=== PATIENT | female | born 1995 ===

== ENCOUNTER 2017-09-12 17:38 | Emergency (ER) | payer OTHER ==
[2017-09-12] MEDS ORDERED: NS(*) 0.9% 1000 ML BAG 1,000 ML IV ONE (18:19)
--- NOTE | 2017-09-12 18:19 | ER Report ---
History and Physical Time Seen By MD: 18:13 Hx. of Stated Complaint: ABD PAIN A FEW DAYS AGO, YESTERDAY WORSE AFTER DRINKING COFFEE. BETTER TODAY UNTIL SHE ATE. NAUSEA NO VOMITING. SAW [facility] AND SENT HERE, AFTER EXAM THINKS IT IS OVARIAN CYST HPI/ROS CHIEF COMPLAINT: Right lower quadrant abdominal pain HISTORY OF PRESENT ILLNESS: 22-year-old female sent over from [place] for evaluation of right lower quadrant pain. Said pain for 3 days. The pain seems to wax and wane. It's worse with eating. Patient denies fever or chills. She's had nausea but no vomiting. She denies diarrhea or constipation. She denies dysuria. She states she had a pelvic exam over at [facility] and they were suspicious for an ovarian cyst. Patient's last menstrual period was several weeks ago. She denies risk of . REVIEW OF SYSTEMS: Respiratory: No cough, no dyspnea. Cardiovascular: No chest pain, no palpitations. Gastrointestinal: As above Musculoskeletal: No back pain. Allergies: Coded Allergies: Penicillins (Verified Allergy, Unknown, 09/12/17) meperidine (Verified Allergy, Unknown, 09/12/17) Home Meds Active Scripts Ondansetron (ZOFRAN ODT) 4 Mg Tab.rapdis, 4 MG PO every 6 hours Y for NAUSEA/ VOMITING, #15 TAB TAKE 1 TABLET BY MOUTH EVERY 12 HOURS Prov:MARCO A NELSON DO 09/12/17 Hydrocodone Bit/Acetaminophen (NORCO 5-325 TABLET) 1 Each Tablet, 1 EACH PO Q4H Y for PAIN, #12 TAB Prov:MARCO A NELSON DO 09/12/17 Reviewed Nurses Notes: Yes Old Medical Records Reviewed: Yes Hx Substance Use Disorder: No Hx Alcohol Use: Yes (WEEKENDS) Constitutional Vital Sign - Last 24 Hours 09/12/17 09/12/17 09/12/17 09/12/17 17:46 17:52 17:53 18:08 Temp 97.6 Pulse 74 83 88 Resp 20 B/P (MAP) 137/89 137/89 (105) Pulse Ox 98 99 100 O2 Delivery Room Air 09/12/17 09/12/17 09/12/17 09/12/17 18:23 18:38 19:53 19:54 Pulse 82 72 71 B/P (MAP) 128/75 (92) Pulse Ox 99 98 96 Intake and Output 09/12/17 09/12/17 09/13/17 15:00 23:00 07:00 Intake Total 400 ml Balance 400 ml Physical Exam General Appearance: The patient is alert, has no immediate need for airway protection and no current signs of toxicity. Vital signs stable, afebrile, skin pink, warm and dry HEENT: Pupils equal and round no injection. Oropharynx without redness or exudate, mucous. Membranes are moist Respiratory: Chest is non tender, lungs are clear to auscultation. Cardiac: regular rate and rhythm Gastrointestinal: Abdomen is soft, moderate right lower quadrant tenderness, some guarding, no rebound, no masses, bowel sounds normal. Musculoskeletal: Neck: Neck is supple and non tender. No lymphadenopathy Extremities have full range of motion and are non tender. Skin: No rashes or lesions. DIFFERENTIAL DIAGNOSIS: After history and physical exam differential diagnosis was considered for abdominal pain including but not limited to appendicitis, cholecystitis, gastritis and urinary tract infection. Additionally,abdominal pain in a female including but not limited to ovarian cyst, pelvic inflammatory disease, ovarian torsion, urinary tract infection, and appendicitis. Medical Decision Making Data Points Result Diagram: 09/12/17 1758 09/12/17 1758 Laboratory Hematology Test 09/12/17 17:48 09/12/17 17:58 Urine Color Yellow Urine Clarity Slightly-cloudy Urine pH 5.0 pH (4.8-9.5) Urine Specific [place] 1.031 Urine Protein Negative mg/dL (NEGATIVE) Urine Glucose (UA) Negative mg/dL (NEGATIVE) Urine Ketones Trace mg/dL (NEGATIVE) Urine Blood Moderate (NEGATIVE) Urine Nitrite Negative (NEGATIVE) Urine Bilirubin Negative (NEGATIVE) Urine Urobilinogen 2.0 mg/dL (0.2-1.9) Urine Leukocyte Esterase Negative (NEGATIVE) Urine RBC 1 /HPF (0-2/HPF) Urine WBC 1 /HPF (0-5/HPF) Urine Squamous Epithelial Cells Many /LPF (</=FEW) Urine Bacteria Negative /HPF (NONE-FEW) Urine Mucus Few /HPF (NONE-FEW) Red Blood Count 5.67 M/uL (4.17-5.56) Mean Corpuscular Volume 87.9 fL (80.0-96.0) Mean Corpuscular Hemoglobin 30.1 pg (26.0-33.0) Mean Corpuscular Hemoglobin Concent 34.3 g/dL (32.0-36.0) Red Cell Distribution Width 13.2 % (11.5-14.5) Mean Platelet Volume 9.6 fL (7.2-11.1) Neutrophils (%) (Auto) 70.6 % (39.4-72.5) Lymphocytes (%) (Auto) 20.1 % (17.6-49.6) Monocytes (%) (Auto) 6.7 % (4.1-12.4) Eosinophils (%) (Auto) 1.8 % (0.4-6.7) Basophils (%) (Auto) 0.8 % (0.3-1.4) Nucleated RBC Relative Count (auto) 0.0 /100WBC Neutrophils # (Auto) 6.6 K/uL (2.0-7.4) Lymphocytes # (Auto) 1.9 K/uL (1.3-3.6) Monocytes # (Auto) 0.6 K/uL (0.3-1.0) Eosinophils # (Auto) 0.2 K/uL (0.0-0.5) Basophils # (Auto) 0.1 K/uL (0.0-0.1) Nucleated RBC Absolute Count (auto) 0.00 K/uL Erythrocyte Sedimentation Rate 11 mm/HOUR (0-20) Sodium Level 143 mmol/L (137-145) Potassium Level 3.6 mmol/L (3.5-5.0) Chloride Level 101 mmol/L (98-107) Carbon Dioxide Level 23 mmol/L (22-31) Blood Urea Nitrogen 14 mg/dl (7-18) Creatinine 1.00 mg/dl (0.52-1.04) Glomerular Filtration Rate Calc > 60.0 Random Glucose 95 mg/dl (75-110) Calcium Level 9.9 mg/dl (8.4-10.2) Total Bilirubin 0.7 mg/dl (0.2-1.3) Aspartate Amino Transf (AST/SGOT) 27 U/L (0-35) Alanine Aminotransferase (ALT/SGPT) 20 U/L (0-56) Alkaline Phosphatase 67 U/L (0-126) C-Reactive Protein 1.0 mg/dl (<1.0) Total Protein 8.9 gm/dl (6.3-8.2) Albumin 4.9 g/dl (3.5-5.0) Amylase Level 113 U/L (0-110) Lipase 84 U/L (23-300) Human Chorionic Gonadotropin, Qual Negative (NEGATIVE) Chemistry Test 09/12/17 17:48 09/12/17 17:58 Urine Color Yellow Urine Clarity Slightly-cloudy Urine pH 5.0 pH (4.8-9.5) Urine Specific [place] 1.031 Urine Protein Negative mg/dL (NEGATIVE) Urine Glucose (UA) Negative mg/dL (NEGATIVE) Urine Ketones Trace mg/dL (NEGATIVE) Urine Blood Moderate (NEGATIVE) Urine Nitrite Negative (NEGATIVE) Urine Bilirubin Negative (NEGATIVE) Urine Urobilinogen 2.0 mg/dL (0.2-1.9) Urine Leukocyte Esterase Negative (NEGATIVE) Urine RBC 1 /HPF (0-2/HPF) Urine WBC 1 /HPF (0-5/HPF) Urine Squamous Epithelial Cells Many /LPF (</=FEW) Urine Bacteria Negative /HPF (NONE-FEW) Urine Mucus Few /HPF (NONE-FEW) White Blood Count 9.3 k/uL (4.5-11.0) Red Blood Count 5.67 M/uL (4.17-5.56) Hemoglobin 17.1 g/dL (12.0-16.0) Hematocrit 49.8 % (34.0-47.0) Mean Corpuscular Volume 87.9 fL (80.0-96.0) Mean Corpuscular Hemoglobin 30.1 pg (26.0-33.0) Mean Corpuscular Hemoglobin Concent 34.3 g/dL (32.0-36.0) Red Cell Distribution Width 13.2 % (11.5-14.5) Platelet Count 248 K/uL (150-450) Mean Platelet Volume 9.6 fL (7.2-11.1) Neutrophils (%) (Auto) 70.6 % (39.4-72.5) Lymphocytes (%) (Auto) 20.1 % (17.6-49.6) Monocytes (%) (Auto) 6.7 % (4.1-12.4) Eosinophils (%) (Auto) 1.8 % (0.4-6.7) Basophils (%) (Auto) 0.8 % (0.3-1.4) Nucleated RBC Relative Count (auto) 0.0 /100WBC Neutrophils # (Auto) 6.6 K/uL (2.0-7.4) Lymphocytes # (Auto) 1.9 K/uL (1.3-3.6) Monocytes # (Auto) 0.6 K/uL (0.3-1.0) Eosinophils # (Auto) 0.2 K/uL (0.0-0.5) Basophils # (Auto) 0.1 K/uL (0.0-0.1) Nucleated RBC Absolute Count (auto) 0.00 K/uL Erythrocyte Sedimentation Rate 11 mm/HOUR (0-20) Glomerular Filtration Rate Calc > 60.0 Calcium Level 9.9 mg/dl (8.4-10.2) Total Bilirubin 0.7 mg/dl (0.2-1.3) Aspartate Amino Transf (AST/SGOT) 27 U/L (0-35) Alanine Aminotransferase (ALT/SGPT) 20 U/L (0-56) Alkaline Phosphatase 67 U/L (0-126) C-Reactive Protein 1.0 mg/dl (<1.0) Total Protein 8.9 gm/dl (6.3-8.2) Albumin 4.9 g/dl (3.5-5.0) Amylase Level 113 U/L (0-110) Lipase 84 U/L (23-300) Human Chorionic Gonadotropin, Qual Negative (NEGATIVE) Urinalysis Test 09/12/17 17:48 Urine Color Yellow Urine Clarity Slightly-cloudy Urine pH 5.0 pH (4.8-9.5) Urine Specific [place] 1.031 Urine Protein Negative mg/dL (NEGATIVE) Urine Glucose (UA) Negative mg/dL (NEGATIVE) Urine Ketones Trace mg/dL (NEGATIVE) Urine Blood Moderate (NEGATIVE) Urine Nitrite Negative (NEGATIVE) Urine Bilirubin Negative (NEGATIVE) Urine Urobilinogen 2.0 mg/dL (0.2-1.9) Urine Leukocyte Esterase Negative (NEGATIVE) Urine RBC 1 /HPF (0-2/HPF) Urine WBC 1 /HPF (0-5/HPF) Urine Squamous Epithelial Cells Many /LPF (</=FEW) Urine Bacteria Negative /HPF (NONE-FEW) Urine Mucus Few /HPF (NONE-FEW) EKG/Imaging Imaging Results: CT scan of the abdomen and pelvis with IV contrast was obtained. The results of the study are CT abdomen and pelvis with IV contrast Indication: Right lower abdominal pain. Comparison: None available. . Technique: Axial CT images were obtained through the abdomen and pelvis during injection of nonionic iodinated intravenous contrast. Reformatted coronal and sagittal images were also obtained. One of the following dose optimization techniques was utilized in the performance of this exam: Automated exposure control; adjustment of the mA and/ or kV according to the patient's size; or use of an iterative reconstruction technique. Specific details can be referenced in the facility's radiology CT exam operational policy. Contrast: 75 ml of Isovue-370 IV contrast. Findings: Lower lung pickett: Limited views lower lung field are unremarkable. Liver: No focal parenchymal abnormality of the liver. Biliary: Gallbladder appears unremarkable as well as the intra and extra hepatic biliary system. Pancreas: Normal appearance. Spleen: Normal appearance. Adrenal glands: Unremarkable. Kidneys / retroperitoneum: No evidence of nephrolithiasis or hydronephrosis no focal abnormality. Bowel / peritoneum / mesenteries: Visualized gastrointestinal tract, including the appendix, within normal limits. Stomach is mildly distended but shows no focal abnormality. No free air, free fluid, fluid collections or areas of inflammation. Lymph node assessment: No pathologic adenopathy identified. Pelvic structures: Right ovary contains a 4.7 cm mildly complex cyst. The pelvic structures otherwise are within normal limits. Vessels: No significant atherosclerotic calcifications seen throughout a nonaneurysmal abdominal aorta and branches. Musculoskeletal / Body wall: No acute or aggressive osseous abnormality. IMPRESSION: 1. The appendix is normal. 2. Right ovary contains a 4.7 cm complex cyst which most likely hemorrhagic cyst. The study was read by the radiologist. I viewed the images myself on the PACS system. ED Course/Re-evaluation Clinical Indication for ER IV: Hydration, IV Access ED Course Patient was minute to an examination room. H&P was done. The differential diagnoses was considered. On clinical examination. Patient is significant right lower quadrant tenderness. She's had pain for 3 days. She does have guarding but no rebound. Patient be treated with IV fluids, Zofran. She declines medicine for pain. Diagnostic studies show normal white blood cell count. A urinalysis is unremarkable. test is negative. A CT scan shows a large 4.7 cm ovarian cyst, hemorrhagic in nature. Patient's discharged home with conservative treatment plan. Patient was given a limited supply of [place] for temporary pain relief. She's given Zofran for nausea. She is advised ibuprofen 6 and her milligrams 3 times daily. Patient's given information to follow up with [facility] if her symptoms persist. Decision to Disposition Date: Sep 12, 2017 Decision to Disposition Time: 19:49 Depart Departure Latest Vital Signs Vital Signs Date Time Temp Pulse Resp B/P (MAP) Pulse Ox O2 Delivery O2 Flow Rate FiO2 09/12/17 19:54 128/75 (92) 09/12/17 19:53 71 96 09/12/17 17:46 97.6 20 Room Air Impression: Primary Impression: Hemorrhagic cyst of right ovary Condition: Improved Disposition: HOME OR SELF-CARE Referrals: RODDY CHAUDHARY MD New Scripts Ondansetron (ZOFRAN ODT) 4 Mg Tab.rapdis 4 MG PO every 6 hours Y for NAUSEA/VOMITING, #15 TAB TAKE 1 TABLET BY MOUTH EVERY 12 HOURS Prov: MARCO A NELSON DO 09/12/17 Hydrocodone Bit/Acetaminophen (NORCO 5-325 TABLET) 1 Each Tablet 1 EACH PO Q4H Y for PAIN, #12 TAB Prov: MARCO A NELSON DO 09/12/17 Patient Instructions: Ovarian Cyst (ED) Additional Instructions: Take ibuprofen 200 mg 3 tablets 3 times a day for inflammatory pain relief By heating pad to your abdomen Follow-up with [facility] if unimproved in 4-7 days Return to the ER for any worsening, especially severe pain, fainting or fever MARCO A NELSON DO Sep 12, 2017 18:19
[2017-09-12] MEDS ORDERED: ONDANSETRON 4 MG/2 ML VIAL IVP ONE (18:20)
[2017-09-12 18:27] LABS: PLATELET COUNT, AUTOMATED 248 K/uL (150-450)
[2017-09-12] MEDS ORDERED: IOPAMIDOL 76% 75 ML INFUS BTL 75 ML ONE (18:30)
--- NOTE | 2017-09-12 19:38 | RADIOLOGY IMAGING REPORT ---
FACILITY: [facility] [place] PATIENT NAME: Karena Mitchell : 1995 MR: [id number] V: [id number] EXAM DATE: [id number] ORDERING PHYSICIAN: MARCO A NELSON TECHNOLOGIST: Location: [facility] Patient: Karena Mitchell : 1995 Visit/Account:[id number] Date of Sevice: 09/12/2017 CT abdomen and pelvis with IV contrast Indication: Right lower abdominal pain. Comparison: None available. . Technique: Axial CT images were obtained through the abdomen and pelvis during injection of nonioni c iodinated intravenous contrast. Reformatted coronal and sagittal images were also obtained. One of the following dose optimization techniques was utilized in the performance of this exam: Autom ated exposure control; adjustment of the mA and/or kV according to the patient's size; or use of an i terative reconstruction technique. Specific details can be referenced in the facility's radiology C T exam operational policy. Contrast: 75 ml of Isovue-370 IV contrast. Findings: Lower lung pickett: Limited views lower lung field are unremarkable. Liver: No focal parenchymal abnormality of the liver. Biliary: Gallbladder appears unremarkable as well as the intra and extra hepatic biliary system. Pancreas: Normal appearance. Spleen: Normal appearance. Adrenal glands: Unremarkable. Kidneys / retroperitoneum: No evidence of nephrolithiasis or hydronephrosis no focal abnormality. Bowel / peritoneum / mesenteries: Visualized gastrointestinal tract, including the appendix, within n ormal limits. Stomach is mildly distended but shows no focal abnormality. No free air, free fluid, fluid collections or areas of inflammation. Lymph node assessment: No pathologic adenopathy identified. Pelvic structures: Right ovary contains a 4.7 cm mildly complex cyst. The pelvic structures otherw ise are within normal limits. Vessels: No significant atherosclerotic calcifications seen throughout a nonaneurysmal abdominal aort a and branches. Musculoskeletal / Body wall: No acute or aggressive osseous abnormality. IMPRESSION: 1. The appendix is normal. 2. Right ovary contains a 4.7 cm complex cyst which most likely hemorrhagic cyst. Report Dictated By: Luis Singh at 09/12/2017 7:27 PM Report E-Signed By: Luis Singh at 09/12/2017 7:33 PM WSN:[id number]
[2017-09-12] MEDS ORDERED: HYDR-4309 PO (19:53)
[2017-09-12] MEDS ORDERED: ONDA4TAB PO (19:53)
[2017-09-12 19:54] VITALS: BP 128/75
== END 2017-09-12 20:02 | disposition home or self-care (01) ==
LOC: EDSTATUS 17:38 → ER 17:48
DX: N83.201 Unspecified ovarian cyst, right side (principal)
CPT/HCPCS: 74177; 81001; 82150; 83690; 84703; 85025; 85651; 86140; 96361; 96374; 99284; J2405; J7030; Q9967; 82040; 82247; 82310; 82374; 82435; 82565; 82947; 84075; 84132; 84155; 84295; 84450; 84460; 84520

== ENCOUNTER 2017-11-05 20:55 | Emergency (ER) | payer OTHER ==
[~2017-11-05 20:55] MED LIST: HYDR-4309 PO; ONDA4TAB PO
[2017-11-05] MEDS ORDERED: ALPR-429 PO (21:06)
[2017-11-05] MEDS ORDERED: METHY10 GT (21:06)
--- NOTE | 2017-11-05 21:09 | ER Report ---
History and Physical Time Seen By MD: 21:09 Hx. of Stated Complaint: Pt reports right lower quadrant pain with no associated vd or fevers. Yes nausea. Dx with ovarian cyst two months ago bent down today and felt a shart pain that has not gone away. Rebound tenderness. HPI/ROS CHIEF COMPLAINT: Right lower quadrant abdominal pain HISTORY OF PRESENT ILLNESS: This is a 22-year-old female. She is having right lower quadrant abdominal pain with no radiation. Onset within the last 24 hours. Having nausea but no vomiting. No diarrhea or changes in bowels. Denies any dysuria or changes in urination. Pain onset after bending down today and felt a sharp pain which has not gone away since. She was diagnosed with an ovarian cyst 2 months ago, did follow up with her family physician, and was planning on seeing Dr. Russell for further evaluation. Pain does worsen with movement. No fevers or chills noted. Currently on menses. Allergies: Coded Allergies: Penicillins (Verified Allergy, Unknown, 09/12/17) meperidine (Verified Allergy, Unknown, 09/12/17) Home Meds Active Scripts Ondansetron (ZOFRAN ODT) 4 Mg Tab.rapdis, 4 MG PO Q6H Y for NAUSEA/VOMITING, # 20 TAB.YU 0 Refills Prov:ANDREA BLANC MD 11/06/17 Hydrocodone Bit/Acetaminophen (HYDROCODON-ACETAMINOPHEN 5-325) 1 Each Tablet, 1 EACH PO Q4H Y for PAIN, #12 TAB 0 Refills Prov:ANDREA BLANC MD 11/06/17 Reported Medications Methylphenidate Hcl (RITALIN) 10 Mg Tab, 10 MG GT BID, TAB 11/05/17 Alprazolam (XANAX) 0.5 Mg Tablet, 1 TAB PO QDAY, TAB 11/05/17 Discontinued Scripts Ondansetron (ZOFRAN ODT) 4 Mg Tab.rapdis, 4 MG PO every 6 hours Y for NAUSEA/ VOMITING, #15 TAB TAKE 1 TABLET BY MOUTH EVERY 12 HOURS Prov:MARCO A NELSON DO 09/12/17 Hydrocodone Bit/Acetaminophen (NORCO 5-325 TABLET) 1 Each Tablet, 1 EACH PO Q4H Y for PAIN, #12 TAB Prov:MARCO A NELSON DO 09/12/17 Reviewed Nurses Notes: Yes Hx Substance Use Disorder: No Hx Alcohol Use: Yes (WEEKENDS) Constitutional Vital Sign - Last 24 Hours 11/05/17 11/05/17 11/05/17 11/05/17 21:00 21:03 21:10 21:15 Temp 98.1 Pulse 87 96 96 Resp 16 B/P (MAP) 152/92 152/92 (112) Pulse Ox 97 96 96 O2 Delivery Room Air 11/05/17 11/05/17 11/05/17 11/05/17 21:20 21:26 21:30 21:45 Pulse 95 B/P (MAP) 123/113 (116) 130/81 (97) Pulse Ox 97 11/05/17 11/05/17 11/05/17 11/05/17 22:20 22:40 23:00 23:15 Pulse 84 85 76 B/P (MAP) 114/63 (80) 125/91 (102) 125/82 (96) Pulse Ox 99 97 96 11/05/17 11/05/17 11/05/17 11/06/17 23:20 23:30 23:35 00:00 Pulse 86 84 B/P (MAP) 125/77 (93) 132/70 (90) Pulse Ox 96 96 11/06/17 11/06/17 11/06/17 11/06/17 00:40 00:45 01:00 01:20 Pulse 105 B/P (MAP) 147/83 (104) 139/76 (97) 136/83 (100) Pulse Ox 98 11/06/17 11/06/17 01:25 01:35 Pulse 91 B/P (MAP) 129/80 (96) Pulse Ox 95 Physical Exam General Appearance: The patient is alert. Acute distress due to pain. Non- toxic in appearance. Eyes: Pupils are equal, round. No pallor, injection or icterus. ENT: Mucous membranes are moist. Normal oral mucosa. Posterior oropharynx is normal. Neck: Supple and non tender. Respiratory: Lungs are clear to auscultation. Cardiovascular: Regular rate and rhythm. No murmurs, gallops or rubs. Gastrointestinal: Abdomen is soft, but tender in the right lower abdomen. Nondistended. Guarding but no rebound. Normal active bowel sounds. No costovertebral angle tenderness with percussion. Neurological: Alert and oriented x3. Skin: Warm and dry. No rashes. Musculoskeletal: No pain with palpation of lower back. DIFFERENTIAL DIAGNOSIS: After history and physical exam, differential diagnosis was considered for abdominal pain in a female including but not limited to ovarian cyst, ovarian torsion, urinary tract infection, and appendicitis. Medical Decision Making Data Points Result Diagram: 11/05/17220011/05/172200 Laboratory Hematology Test 11/05/17 21:03 11/05/17 22:01 Urine Color Straw Urine Clarity Clear Urine pH 7.0 pH (4.8-9.5) Urine Specific Shelby 1.004 Urine Protein Negative mg/dL (NEGATIVE) Urine Glucose (UA) Negative mg/dL (NEGATIVE) Urine Ketones Negative mg/dL (NEGATIVE) Urine Blood Negative (NEGATIVE) Urine Nitrite Negative (NEGATIVE) Urine Bilirubin Negative (NEGATIVE) Urine Urobilinogen Negative mg/dL (0.2-1.9) Urine Leukocyte Esterase Negative (NEGATIVE) Urine RBC <1 /HPF (0-2/HPF) Urine WBC 1 /HPF (0-5/HPF) Urine Squamous Epithelial Cells Few /LPF (</=FEW) Urine Bacteria Negative /HPF (NONE-FEW) Urine Mucus None /HPF (NONE-FEW) Red Blood Count 4.63 M/uL (4.17-5.56) Mean Corpuscular Volume 87.9 fL (80.0-96.0) Mean Corpuscular Hemoglobin 30.0 pg (26.0-33.0) Mean Corpuscular Hemoglobin Concent 34.1 g/dL (32.0-36.0) Red Cell Distribution Width 12.9 % (11.5-14.5) Mean Platelet Volume 9.5 fL (7.2-11.1) Neutrophils (%) (Auto) 73.9 % (39.4-72.5) Lymphocytes (%) (Auto) 13.3 % (17.6-49.6) Monocytes (%) (Auto) 9.2 % (4.1-12.4) Eosinophils (%) (Auto) 2.9 % (0.4-6.7) Basophils (%) (Auto) 0.7 % (0.3-1.4) Nucleated RBC Relative Count (auto) 0.1 /100WBC Neutrophils # (Auto) 8.4 K/uL (2.0-7.4) Lymphocytes # (Auto) 1.5 K/uL (1.3-3.6) Monocytes # (Auto) 1.0 K/uL (0.3-1.0) Eosinophils # (Auto) 0.3 K/uL (0.0-0.5) Basophils # (Auto) 0.1 K/uL (0.0-0.1) Nucleated RBC Absolute Count (auto) 0.01 K/uL Sodium Level 139 mmol/L (137-145) Potassium Level 3.3 mmol/L (3.5-5.0) Chloride Level 106 mmol/L (98-107) Carbon Dioxide Level 22 mmol/L (22-31) Blood Urea Nitrogen 11 mg/dl (7-18) Creatinine 0.90 mg/dl (0.52-1.04) Glomerular Filtration Rate Calc > 60.0 Random Glucose 93 mg/dl (75-110) Calcium Level 8.7 mg/dl (8.4-10.2) Total Bilirubin 0.8 mg/dl (0.2-1.3) Aspartate Amino Transf (AST/SGOT) 25 U/L (0-35) Alanine Aminotransferase (ALT/SGPT) 23 U/L (0-56) Alkaline Phosphatase 45 U/L (0-126) C-Reactive Protein 2.0 mg/dl (<1.0) Total Protein 6.6 gm/dl (6.3-8.2) Albumin 3.8 g/dl (3.5-5.0) Amylase Level 108 U/L (0-110) Lipase 66 U/L (23-300) Human Chorionic Gonadotropin, Qual Negative (NEGATIVE) Chemistry Test 11/05/17 21:03 11/05/17 22:01 Urine Color Straw Urine Clarity Clear Urine pH 7.0 pH (4.8-9.5) Urine Specific Shelby 1.004 Urine Protein Negative mg/dL (NEGATIVE) Urine Glucose (UA) Negative mg/dL (NEGATIVE) Urine Ketones Negative mg/dL (NEGATIVE) Urine Blood Negative (NEGATIVE) Urine Nitrite Negative (NEGATIVE) Urine Bilirubin Negative (NEGATIVE) Urine Urobilinogen Negative mg/dL (0.2-1.9) Urine Leukocyte Esterase Negative (NEGATIVE) Urine RBC <1 /HPF (0-2/HPF) Urine WBC 1 /HPF (0-5/HPF) Urine Squamous Epithelial Cells Few /LPF (</=FEW) Urine Bacteria Negative /HPF (NONE-FEW) Urine Mucus None /HPF (NONE-FEW) White Blood Count 11.4 k/uL (4.5-11.0) Red Blood Count 4.63 M/uL (4.17-5.56) Hemoglobin 13.9 g/dL (12.0-16.0) Hematocrit 40.7 % (34.0-47.0) Mean Corpuscular Volume 87.9 fL (80.0-96.0) Mean Corpuscular Hemoglobin 30.0 pg (26.0-33.0) Mean Corpuscular Hemoglobin Concent 34.1 g/dL (32.0-36.0) Red Cell Distribution Width 12.9 % (11.5-14.5) Platelet Count 183 K/uL (150-450) Mean Platelet Volume 9.5 fL (7.2-11.1) Neutrophils (%) (Auto) 73.9 % (39.4-72.5) Lymphocytes (%) (Auto) 13.3 % (17.6-49.6) Monocytes (%) (Auto) 9.2 % (4.1-12.4) Eosinophils (%) (Auto) 2.9 % (0.4-6.7) Basophils (%) (Auto) 0.7 % (0.3-1.4) Nucleated RBC Relative Count (auto) 0.1 /100WBC Neutrophils # (Auto) 8.4 K/uL (2.0-7.4) Lymphocytes # (Auto) 1.5 K/uL (1.3-3.6) Monocytes # (Auto) 1.0 K/uL (0.3-1.0) Eosinophils # (Auto) 0.3 K/uL (0.0-0.5) Basophils # (Auto) 0.1 K/uL (0.0-0.1) Nucleated RBC Absolute Count (auto) 0.01 K/uL Glomerular Filtration Rate Calc > 60.0 Calcium Level 8.7 mg/dl (8.4-10.2) Total Bilirubin 0.8 mg/dl (0.2-1.3) Aspartate Amino Transf (AST/SGOT) 25 U/L (0-35) Alanine Aminotransferase (ALT/SGPT) 23 U/L (0-56) Alkaline Phosphatase 45 U/L (0-126) C-Reactive Protein 2.0 mg/dl (<1.0) Total Protein 6.6 gm/dl (6.3-8.2) Albumin 3.8 g/dl (3.5-5.0) Amylase Level 108 U/L (0-110) Lipase 66 U/L (23-300) Human Chorionic Gonadotropin, Qual Negative (NEGATIVE) Urinalysis Test 11/05/17 21:03 Urine Color Straw Urine Clarity Clear Urine pH 7.0 pH (4.8-9.5) Urine Specific Shelby 1.004 Urine Protein Negative mg/dL (NEGATIVE) Urine Glucose (UA) Negative mg/dL (NEGATIVE) Urine Ketones Negative mg/dL (NEGATIVE) Urine Blood Negative (NEGATIVE) Urine Nitrite Negative (NEGATIVE) Urine Bilirubin Negative (NEGATIVE) Urine Urobilinogen Negative mg/dL (0.2-1.9) Urine Leukocyte Esterase Negative (NEGATIVE) Urine RBC <1 /HPF (0-2/HPF) Urine WBC 1 /HPF (0-5/HPF) Urine Squamous Epithelial Cells Few /LPF (</=FEW) Urine Bacteria Negative /HPF (NONE-FEW) Urine Mucus None /HPF (NONE-FEW) EKG/Imaging Imaging ABDOMEN/PELVIS WITH CONTRAST HISTORY: Right lower quadrant abdominal pain. COMPARISON: 09/12/2017. TECHNIQUE: Axial images were obtained from the lung bases through the symphysis pubis with intravenous contrast. Sagittal and coronal reformats were performed. One of the following dose optimization techniques was utilized in the performance of this exam: Automated exposure control; adjustment of the mA and/ or kV according to the patient's size; or use of an iterative reconstruction technique. Specific details can be referenced in the facility's radiology CT exam operational policy. CONTRAST: 75 mL IV [id number]. FINDINGS: Lower chest: Normal. Liver: Normal. Gallbladder/biliary: Normal. Pancreas: Normal. Spleen: Normal. Adrenals: Normal. Kidneys/ureters/bladder: Normal. GI/mesentery/peritoneal cavity: There is no bowel obstruction. There is no wall thickening or pericolonic stranding. The appendix is normal. Vessels: No aneurysm or significant atherosclerotic disease. No dissection. There is a circumaortic left renal vein. Nodes: Normal. Pelvis: There is a 5.2 cm right ovarian cyst that contains a fluid-fluid level ( coronal image 45), previously measuring 4.7 cm maximal diameter. The posterior fluid in the cyst is of higher density and may be blood products. There are small left ovarian follicles. New from the prior study is a small amount of complex pelvic free fluid in the cul-de-sac that tracks anterior to the lower spine in the midline and into the right lower quadrant. There is a tampon in the vagina. Bones/vertebra/soft tissues: There is mild wedging of T10-T12, unchanged, and likely physiologic. No listhesis. There is a slight leftward curvature of the thoracolumbar spine. No fracture or dislocation. IMPRESSION: 1. Normal appendix. 2. Complex, potentially hemorrhagic, right ovarian cyst has mildly increased in size, and there is new complex free fluid in the pelvis tracking into the right lower quadrant that suspect is hemorrhage related to cyst rupture. Report Dictated By: Keturah Parker at 11/05/2017 11:06 PM EXAMINATION: Transvaginal pelvic ultrasound with duplex Doppler evaluation 02/2018 11:33 PM HISTORY: rlq pain, ovarian cyst.; LMP: 11/03/2017 COMPARISON STUDIES: none. FINDINGS: Uterus: Partially retroverted, 6.6 x 3.5 x 4.6 cm Myometrium: negative Endometrium: Negative. 8 mm thickness. Cervix: negative Ovaries: right ovary 4.3 x 5.2 x 2.8 cm, left ovary 3.0 x 2.7 x 2.3 cm, right ovary contains a cystic structure measuring 3.7 x 2.5 x 4.3 cm with an internal fluid fluid level. Blood flow is documented in each ovary by Doppler ultrasound. Adnexa: negative Free pelvic fluid: none IMPRESSION: 1. 4.3 cm right ovarian cyst with a fluid fluid or fluid debris level. With the history of pain, likely this is a hemorrhagic cyst with dependent material. Fat fluid level as can be seen with a dermoid would be an imaging differential. 2. Otherwise unremarkable study. Report Dictated By: Martir Hubbard MD at 11/06/2017 12:45 AM ED Course/Re-evaluation Clinical Indication for ER IV: Hydration, IV Access ED Course After initial evaluation, as noted above, the patient had an IV started and labs obtained. These were fairly unremarkable with mild elevated white count and a slight decrease in potassium. And a negative urinalysis. CT scan showed a right ovarian mass similar to previously seen on CT scan. Ultrasound was done as follow-up. Slight amount of free fluid which could represent ovarian cyst rupture as well. Patient later accepted some IV morphine to help with pain. She felt much better after this. Discussed results with her and provided some pain medicine and nausea medicine for outpatient use and she will call Dr. Russell' s office later this morning to make an appointment as planned for further evaluation. Decision to Disposition Date: Nov 06, 2017 Decision to Disposition Time: 01:34 Depart Departure Latest Vital Signs Vital Signs Date Time Temp Pulse Resp B/P (MAP) Pulse Ox O2 Delivery O2 Flow Rate FiO2 11/06/17 01:35 129/80 (96) 11/06/17 01:25 91 95 11/05/17 21:00 98.1 16 Room Air Impression: Primary Impression: Hemorrhagic cyst of right ovary Condition: Improved Disposition: HOME OR SELF-CARE New Scripts Ondansetron (ZOFRAN ODT) 4 Mg Tab.rapdis 4 MG PO Q6H Y for NAUSEA/VOMITING, #20 TAB.YU 0 Refills Prov: ANDREA BLANC MD 11/06/17 Hydrocodone Bit/Acetaminophen (HYDROCODON-ACETAMINOPHEN 5-325) 1 Each Tablet 1 EACH PO Q4H Y for PAIN, #12 TAB 0 Refills Prov: ANDREA BLANC MD 11/06/17 Patient Instructions: Ovarian Cyst (ED), Ruptured Ovarian Cyst (ED) Additional Instructions: Please call Dr. Russell's office later this morning and let them know you were here in the ER tonight. They can schedule you for outpatient follow-up. If pain worsens, you can take Lortab 5/325, one every 4 hours as needed for pain. You can take Zofran 4mg, one every 6 hours as needed for nausea or vomiting. If symptoms are severe and not controlled with medications, please return to the ER for further evaluation. ANDREA BLANC MD Nov 05, 2017 21:09
[2017-11-05] MEDS ORDERED: NS(*) 0.9% 1000 ML BAG 1,000 ML IV ONE (21:16)
[2017-11-05] MEDS ORDERED: MORPHINE 4 MG/ML SDV IVP ONE (21:20)
[2017-11-05] MEDS ORDERED: ONDANSETRON 4 MG/2 ML VIAL IVP ONE (21:20)
[2017-11-05] MEDS ORDERED: IOPAMIDOL 76% 75 ML INFUS BTL 75 ML ONE (21:30)
[2017-11-05 22:09] LABS: PLATELET COUNT, AUTOMATED 183 K/uL (150-450)
--- NOTE | 2017-11-05 23:18 | RADIOLOGY IMAGING REPORT ---
FACILITY: [facility] PATIENT NAME: Karena Mitchell : 1995 MR: [id number] V: [id number] EXAM DATE: ORDERING PHYSICIAN: ANDREA BLANC TECHNOLOGIST: Location: [facility] - [place] Patient: Karena Mitchell : 1995 Visit/Account:[id number] Date of Sevice: 11/05/2017 ABDOMEN/PELVIS WITH CONTRAST HISTORY: Right lower quadrant abdominal pain. COMPARISON: 09/12/2017. TECHNIQUE: Axial images were obtained from the lung bases through the symphysis pubis with intravenou s contrast. Sagittal and coronal reformats were performed. One of the following dose optimization techniques was utilized in the performance of this exam: Autom ated exposure control; adjustment of the mA and/or kV according to the patient's size; or use of an i terative reconstruction technique. Specific details can be referenced in the facility's radiology CT exam operational policy. CONTRAST: 75 mL IV Isovue-370. FINDINGS: Lower chest: Normal. Liver: Normal. Gallbladder/biliary: Normal. Pancreas: Normal. Spleen: Normal. Adrenals: Normal. Kidneys/ureters/bladder: Normal. GI/mesentery/peritoneal cavity: There is no bowel obstruction. There is no wall thickening or pericol onic stranding. The appendix is normal. Vessels: No aneurysm or significant atherosclerotic disease. No dissection. There is a circumaortic l eft renal vein. Nodes: Normal. Pelvis: There is a 5.2 cm right ovarian cyst that contains a fluid-fluid level (coronal image 45), pr eviously measuring 4.7 cm maximal diameter. The posterior fluid in the cyst is of higher density and may be blood products. There are small left ovarian follicles. New from the prior study is a small am ount of complex pelvic free fluid in the cul-de-sac that tracks anterior to the lower spine in the mi dline and into the right lower quadrant. There is a tampon in the vagina. Bones/vertebra/soft tissues: There is mild wedging of T10-T12, unchanged, and likely physiologic. No listhesis. There is a slight leftward curvature of the thoracolumbar spine. No fracture or dislocatio n. IMPRESSION: 1. Normal appendix. 2. Complex, potentially hemorrhagic, right ovarian cyst has mildly increased in size, and there is ne w complex free fluid in the pelvis tracking into the right lower quadrant that suspect is hemorrhage related to cyst rupture. Report Dictated By: Keturah Parker at 11/05/2017 11:06 PM Report E-Signed By: Keturah Parker at 11/05/2017 11:16 PM WSN:[id number]
[2017-11-06] MEDS ORDERED: MORPHINE 4 MG/ML SDV IVP ONE (00:35)
--- NOTE | 2017-11-06 00:55 | RADIOLOGY IMAGING REPORT ---
FACILITY: [facility] PATIENT NAME: Karena Mitchell : 1995 MR: [id number] V: [id number] EXAM DATE: ORDERING PHYSICIAN: ANDREA BLANC TECHNOLOGIST: Location: [facility] - [place] Patient: Karena Mitchell : 1995 Visit/Account:[id number] Date of Sevice: 11/05/2017 EXAMINATION: Transvaginal pelvic ultrasound with duplex Doppler evaluation 11/05/2017 11:33 PM HISTORY: rlq pain, ovarian cyst.; LMP: 11/03/2017 COMPARISON STUDIES: none. FINDINGS: Uterus: Partially retroverted, 6.6 x 3.5 x 4.6 cm Myometrium: negative Endometrium: Negative. 8 mm thickness. Cervix: negative Ovaries: right ovary 4.3 x 5.2 x 2.8 cm, left ovary 3.0 x 2.7 x 2.3 cm, right ovary contains a cystic structure measuring 3.7 x 2.5 x 4.3 cm with an internal fluid fluid level. Blood flow is documented in each ovary by Doppler ultrasound. Adnexa: negative Free pelvic fluid: none IMPRESSION: 1. 4.3 cm right ovarian cyst with a fluid fluid or fluid debris level. With the history of pain, like ly this is a hemorrhagic cyst with dependent material. Fat fluid level as can be seen with a dermoid would be an imaging differential. 2. Otherwise unremarkable study. Report Dictated By: Martir Hubbard MD at 11/06/2017 12:45 AM Report E-Signed By: Martir Hubbard MD at 11/06/2017 12:53 AM WSN:[id number]
[2017-11-06 01:35] VITALS: BP 129/80
[2017-11-06] MEDS ORDERED: LOR5/325 PO (01:35)
[2017-11-06] MEDS ORDERED: ONDA4TAB PO (01:35)
[2017-11-06] MEDS ORDERED: ACET/HYDROC 5/325MG TH ER ONLY 2 TAB/BOTTLE PO ONE (01:40)
[2017-11-06] MEDS ORDERED: ONDANSETRON 4 MG ODT TH SL ONE (01:40)
== END 2017-11-06 01:48 | disposition home or self-care (01) ==
LOC: ER 21:16
DX: N83.201 Unspecified ovarian cyst, right side (principal)
CPT/HCPCS: 74177; 76830; 81001; 82150; 83690; 84703; 85025; 86140; 96361; 96374; 96375; 99284; J2270; J2405; J7030; Q9967; S0119; 82040; 82247; 82310; 82374; 82435; 82565; 82947; 84075; 84132; 84155; 84295; 84450; 84460; 84520

== ENCOUNTER → 2017-11-06 | Outpatient (CLI) | payer OTHER ==
[~2017-11-06] MED LIST changes: +ALPR-429 PO; +LOR5/325 PO; +METHY10 GT
== END ==
LOC: LAB 10:34
PROVIDERS: ATTEND Student in an Organized Health Care Education/Training Program
DX: N83.201 Unspecified ovarian cyst, right side (principal)
CPT/HCPCS: 36415; 82105; 83520; 83615; 86304

== ENCOUNTER 2017-11-17 01:17 | Day surgery (SDC) | payer OTHER ==
[~2017-11-17] VITALS: Ht 172.7 cm; Wt 68.9 kg
[2017-11-17] VITALS (29 sets, daily range): BP systolic 86–134; BP diastolic 40–83
[~2017-11-17 01:17] MED LIST changes: +OXYC5CAP21 PO
[2017-11-17] MEDS ORDERED: FAMOTIDINE 20 MG TAB PO ONE (06:30)
[2017-11-17] MEDS ORDERED: NORMOSOL R SOLN(*) 1000 ML BAG 1,000 ML IV PRN (06:30)
[2017-11-17] MEDS ORDERED: ceFAZolin(*) 1 GM VIAL 1 GM in NS(*) 0.9% 100 ML ADDVANT BAG 100 ML IV ONE (06:30)
[2017-11-17] MEDS ORDERED: LIDOCAINE/SOD BICARB 8.4% SYR ID ONE (06:30)
[2017-11-17] MEDS ORDERED: ceFAZolin 1 GM VIAL IVP ONE (06:30)
[2017-11-17] MEDS ORDERED: MIDAZOLAM 2 MG/2 ML VIAL IVP PRN (06:30)
[2017-11-17] MEDS ORDERED: ROPIVACAINE 0.2% 20 ML VIAL ONE (06:37)
[2017-11-17 07:06] LABS: PLATELET COUNT, AUTOMATED 263 K/uL (150-450)
[2017-11-17] MEDS ORDERED: fentaNYL CITR 250 MCG/5 ML AMP ONE (07:30)
[2017-11-17] MEDS ORDERED: ROCURONIUM BROM 10 MG/ML 5 ML ONE (07:30)
[2017-11-17] MEDS ORDERED: PROPOFOL EMUL(*) 10MG/ML 20 ML 20 ML ONE ×2 (07:32→08:07)
[2017-11-17] MEDS ORDERED: LIDOCAINE 2% IV 100 MG/5ML SYR ONE (07:32)
[2017-11-17] MEDS ORDERED: ONDANSETRON 4 MG/2 ML VIAL ONE (07:42)
[2017-11-17] MEDS ORDERED: DEXAMETHASONE SOD 4 MG/ML VIAL ONE (07:42)
[2017-11-17] MEDS ORDERED: KETOROLAC 30 MG/ML VIAL ONE (07:52)
[2017-11-17] MEDS ORDERED: SUGAMMADEX SOD 200 MG/2 ML SDV ONE (08:06)
[2017-11-17] MEDS ORDERED: fentaNYL CITR 100 MCG/2 ML AMP ONE ×3 (08:29→10:13)
[2017-11-17] MEDS ORDERED: LR(*) 1000 ML BAG 1,000 ML IV ONE (09:36)
[2017-11-17] MEDS ORDERED: ONDANSETRON 4 MG/2 ML VIAL IVP PRN (09:40)
[2017-11-17] MEDS ORDERED: METOCLOPRAMIDE 10 MG/2 ML SDV IVP PRN (09:40)
--- NOTE | 2017-11-17 09:40 | OB/GYN Discharge Summary ---
Discharge Summary Reason for Hosp/Final Diag: (1) Hemorrhagic cyst of right ovary Status: Acute Hospital Course & Plan: Pt presented for scheduled surgery. Surgery revealed possible endometrioma on the right ovary as well as in the posterior cul-de- sac. Biopsy's were collected. Pt to be discharged home and follow up in 1-2 weeks. [place] Vital Signs Vital Signs Date Time Temp Pulse Resp B/P (MAP) Pulse Ox O2 Delivery O2 Flow Rate FiO2 11/17/17 09:30 75 11 100 11/17/17 06:52 96.8 123/83 (96) Room Air Weight (Pounds): 152 Weight (Ounces): 6.0 Result Diagram: 11/17/17621 Condition: Improved Home Meds Active Scripts Ondansetron (ZOFRAN ODT) 4 Mg Tab.rapdis, 4 MG PO Q6H Y for NAUSEA/VOMITING, # 20 TAB.YU 0 Refills Prov:ANDREA BLANC MD 11/06/17 Reported Medications Oxycodone Hcl (OXYCODONE HCL) 5 Mg Capsule, PO Y for PAIN, CAPSULE 11/13/17 Methylphenidate Hcl (RITALIN) 10 Mg Tab, 10 MG GT BID, TAB 11/05/17 Alprazolam (XANAX) 0.5 Mg Tablet, 1 TAB PO QDAY, TAB 11/05/17 Discontinued Scripts Hydrocodone Bit/Acetaminophen (HYDROCODON-ACETAMINOPHEN 5-325) 1 Each Tablet, 1 EACH PO Q4H Y for PAIN, #12 TAB 0 Refills Prov:ANDREA BLANC MD 11/06/17 Follow up with: [facility] [phone], Dr. Sánchez [phone] Follow up in: 2 wks PO Discharge Diet: As Tolerates, Resume Prior Admit Diet Discharge Activity: As Tolerates, No Heavy Lifting > 10lb, Pelvic Rest GISELLE SÁNCHEZ DO Nov 17, 2017 09:40
--- NOTE | 2017-11-17 09:55 | Post Operative Note ---
Operative Note - SIGNAL[facility] Operative Day Date: Nov 17, 2017 Time: 09:40 Physicians Surgeon: Giselle Sánchez Anesthesia: GET 20 cc 0.2% Rupivicaine Diagnosis Pre-Op Diagnosis: Right adnexal mass Pelvic pain Post-Op Diagnosis: same Possible endometriosis Procedure Findings: Normal uterus with significant scarring to posterior pelvic sidewall. Endometrioma appearing cyst between side wall and left uterosacral. Left ovary with no mass, not freely mobile, scarring noted along ovary and pelvic side wall. Right ovary about 5 cm. Cyst removed with dark chocolate appear fluid upon rupture. Fallopian tubes were mobile with no adhesions noted. Procedure(s): Operative Laparoscopy with right ovarian cystectomy, peritoneal biopsies, and pelvic/peritoneal washings Specimen Removed:(Maybe N/A): Peritoneal biopsies ( Right and left uterosacral ligaments) Washings Right ovarian cyst Complications: 0 known Fluids Fluids: 1100 cc LR 50 cc u/o Estimated Blood Loss: 50 Dictated Date OP Note Dictated: Nov 17, 2017 GISELLE SÁNCHEZ DO Nov 17, 2017 09:55
[2017-11-17] MEDS ORDERED: HYDR-4309 PO (09:59)
[2017-11-17] MEDS ORDERED: IBUP800T37 PO (09:59)
[2017-11-17] MEDS ORDERED: APAP/HYDROCODONE 325/5 TAB ONE ×2 (10:13→14:39)
--- NOTE | 2017-11-17 13:44 | OPERATIVE REPORT 1 ---
EVENT DATE: November 17, 2017 SURGEON: Angelo Sánchez DO ANESTHESIOLOGIST: Kwaku Bradley MD ANESTHESIA: General endotracheal intubation, 20 mL of 0.2% ropivacaine was used for local. PREOPERATIVE DIAGNOSES 1. 22-year-old nulligravida patient. 2. Right adnexal mass. 3. Pelvic pain. POSTOPERATIVE DIAGNOSES 1. 22-year-old nulligravida patient. 2. Right adnexal mass. 3. Pelvic pain. 4. Possible endometriosis. PROCEDURE PERFORMED Operative laparoscopy with right cystectomy, peritoneal biopsies and pelvic/ peritoneal washings. FINDINGS Normal six to eight-week appearing uterus with significant scarring of the left side of the uterus to the posterior pelvic side wall. There was an endometrioma between the pelvic side wall and the uterus that was easily freed up with blunt dissection with what appears to be chocolate filled or old blood- filled cyst. Left ovary with no mass, not freely mobile, appeared to be adhered to the left pelvic side wall. Right ovary was approximately 5 cm with a cyst. The cyst was removed. Also had dark chocolate appearing fluid upon rupture. Fallopian tubes were normal with no adhesions noted bilaterally. Normal smooth liver. Exam consistent with Endometriosis EBL 50 mL. IV FLUIDS 11 mL lactated ringer. URINE OUTPUT 50 mL. PATHOLOGY Right ovarian cyst. Left and right uterosacral peritoneal biopsies, pelvic washings. COMPLICATIONS None known. CONDITION Stable to PACU then to recovery. COUNTS Correct. INDICATIONS AND CONSENT Patient is a 22-year-old nulligravid patient who presented to clinic originally in August with chief complaint of abdominal/pelvic pain. Patient had been seen in the emergency room and was noted to have a 5 cm adnexal mass on the right side. It was decided to proceed with surveillance and follow the patient in three months. Patient presented three months later with same complaint. Mass on the right side appeared unchanged. Patient desired definitive surgical management and was counseled, and consents were signed accordingly. PROCEDURE Patient was taken to the operating room, where she had a general endotracheal intubation achieved. Once intubation was achieved, she was placed in the dorsal lithotomy position, prepped and draped in the usual sterile manner. A sterile speculum was placed in the vagina. The cervix was easily visualized, grasped with an Allis clamp, sounded to 7 cm. A RODOLFO uterine manipulator was placed. Sterile speculum was removed. Surgeon's gloves were changed. Attention was turned to the abdomen. Ropivacaine was used for local anesthesia at the umbilicus. A 5 mm skin incision was then created with an 11 blade scalpel. Pneumoperitoneum was achieved with a Veress needle. Once pneumoperitoneum was achieved, a 5 mm trocar was entered under direct laparoscopic visualization. The area directly below insertion was found to be inspected and found to be without any injury. Trocars were then placed in the right and left lower quadrant using ropivacaine prior to a 5 mm incision. These were both placed under direct laparoscopic visualization. Initially the uterus was not able to be moved, but with blunt dissection with the probe, the uterus became mobile. It was noted that there was a significant, what appeared to be 5 cm cyst connecting the posterior aspect of the uterus from about the internal os of the cervix to the left pelvic sidewall. This ruptured with manipulation of the cyst, what appeared to have a dark old blood or chocolate-appearing fluid. The bowel continued to fall into the pelvis. This was easily removed. With the patient in Trendelenburg position, the right ovarian cyst mass was noted, pulled from the cul-de-sac using the harmonic scalpel. The cyst wall was entered, again noting an old blood or chocolate-appearing appearance. The cyst wall was dissected completely and removed, leaving the right ovary intact. The hemostatic agent was placed over the raw edges of the ovary, where hemostasis was noted. The posterior gutter was cleaned. We did perform peritoneal washings prior to doing any sort of surgical procedure. Also, had biopsies from the left and right uterosacral ligaments to be sent to pathology. Because an Endobag was used to remove the ovarian cyst, 11 mm trocar was used. With the 11 mm trocar removed, this was closed with a Brett-Tato with pneumoperitoneum remaining and fascial edges reapproximated. Pneumoperitoneum was slowly released. The ovarian tissue was watched with pneumoperitoneum released, and hemostasis was noted and achieved. At this point, the pneumoperitoneum was completely released. The trocars were removed. The attention was then turned to closing the skin incisions. The skin incisions were then closed with a 4-0 Monocryl in a subcuticular manner. We then had Dermabond placed over the incisions. The patient was then awoken and transferred to the recovery room in stable condition. TAB
[2017-11-17] MEDS ORDERED: ACETAMINOPHEN(*)1000 MG/100 ML 100 ML IVPB ONE (13:58)
[2017-11-17] MEDS ORDERED: NORMOSOL R SOLN(*) 1000 ML BAG 1,000 ML IV ONE (13:58)
[2017-11-17] MEDS ORDERED: IBUPROFEN 800 MG TAB PO SCH (17:00)
== END 2017-11-17 10:05 | disposition home or self-care (01) ==
LOC: OR 01:17
PROVIDERS: ATTEND Student in an Organized Health Care Education/Training Program
DX: N85.9 Noninflammatory disorder of uterus, unspecified (principal); R10.2 Pelvic and perineal pain
CPT/HCPCS: 36415; 49321; 58662; 84703; 85025; 88108; 88305; J0131; J0690; J1100; J1885; J2001; J2250; J2405; J2704; J2795; J3010